=== PATIENT | male | born 1955 | race American Indian/Alaskan Native ===

== ENCOUNTER 2017-05-20 08:47 | Outpatient (CLI) | payer MEDICAID ==
--- NOTE | 2017-05-20 09:29 | XRay Report ---
Right shoulder 2 views: History: Pain in right shoulder. Findings trabecular There is some separation noted of the a.c. joint which measures 0.8 cm. There is ossification noted at the undersurface of the distal left clavicle at the coracoclavicular space which measures 16 mm. There is arthritic change is noted at the glenohumeral joint inferiorly. Sclerotic areas are noted at the greater tuberosity right humerus may be related to old injury or rotator cuff abnormality. No evidence of acute fracture. Impression: Findings as detailed above. No acute fracture.
--- NOTE | 2017-05-20 09:37 | XRay Report ---
Right foot 3 views: History: Pain in right foot. Findings: Severe arthritic changes of the first tarsometatarsal and metatarsophalangeal joint. [id number] arthritic changes of the interphalangeal joint second, third, fourth and fifth toes. No periosteal reaction or lytic lesion. No soft tissue calcification. Impression: Arthritic changes as detailed above.
== END 2017-05-20 08:48 | disposition home or self-care (01) ==
LOC: XRAY 08:47
PROVIDERS: ATTEND Internal Medicine
DX: M19.071 Primary osteoarthritis, right ankle and foot (principal); M19.011 Primary osteoarthritis, right shoulder

== ENCOUNTER 2017-07-13 12:29 | Outpatient (CLI) | payer MEDICAID ==
--- NOTE | 2017-07-13 13:47 | XRay Report ---
XRAY RIGHT SHOULDER THREE VIEWS: 07/13/17 12:29:00 CLINICAL: Right shoulder pain. COMPARISON: 05/20/17 FINDINGS: No fracture or glenohumeral joint dislocation. Mild glenohumeral joint arthritis in stable mild mixed lucent and sclerotic changes in the humeral head. Stable acromioclavicular joints separation with elevation of the clavicle and widening of the joint. Exuberant subclavicular heterotopic new bone formation is unchanged compared to the prior exam. Normal soft tissues. IMPRESSION: No change since prior exam. Chronic acromioclavicular joint separation. Mild glenohumeral joint arthritis.
--- NOTE | 2017-07-13 13:47 | XRay Report ---
RIGHT FOOT, 3 views: History: Right foot pain. Compared to 05/20/17. Advanced joint space narrowing is again noted at the first metatarsophalangeal joint. The remaining joint spaces are within normal limits. There is no evidence for fracture, malalignment or bone lesion. No bony destruction. The soft tissues are unremarkable. IMPRESSION: No acute process. Advanced osteoarthritic changes at the first metatarsophalangeal joint.
== END 2017-07-13 12:30 | disposition home or self-care (01) ==
LOC: XRAY 12:29
PROVIDERS: ATTEND Orthopaedic Surgery
DX: M19.011 Primary osteoarthritis, right shoulder (principal); M19.071 Primary osteoarthritis, right ankle and foot